=== PATIENT | female | born 1970 | race Caucasian/White ===

== ENCOUNTER 2023-11-27 11:12 | Outpatient (CLI) | payer BC, SELFPAY ==
[2023-11-27 11:43] LABS: Hematocrit 38.9 % (37.0-47.0); Hemoglobin 13.1 g/dL (12.0-15.0); Mean Corpuscular HGB Conc 33.7 g/dl (32-36); Mean Corpuscular Hemoglobin 31.1 pg (26-34); Mean Corpuscular Volume 92.4 fl (80-100); Mean Platelet Volume 9.7 fl (7.4-10.4); Platelet Count Result 235 k/mm3 (150-375); Red Blood Count 4.21 M/mm3 (4.2-5.4); Red Cell Distribution Width 14.2 % (11.5-14.5); White Blood Count 4.2 K/mm3 (4.5-10.0)
[2023-11-27 11:54] LABS: Band Neutrophils Percent 4 % (0-6); Eosinophils Absolute Manual 0.16 K/mm3 (0.02-0.50); Eosinophils Percent Manual 4 % (0-4); Lymphocytes Absolute Manual 2.39 K/mm3 (1.1-4.5); Monocytes Absolute Manual 0.21 K/mm3 (0.1-0.90); Monocytes Percent Manual 5 % (3-9); Neutrophils Absolute Manual 1.42 K/mm3 (1.7-7.2); Neutrophils Percent Manual 30 % (46-73); Platelet Estimate Adequate (Adequate); Schistocytes None Seen; Total Cells Counted 100
[2023-11-27 17:07] LABS: Alanine Aminotransferase 33 U/L (6-35); Albumin Level 4.6 g/dL (3.5-5.1); Alkaline Phosphatase 87 U/L (38-126); Anion Gap 5 mmol/L (4-12); Aspartate Amino Transferase 41 U/L (14-36); Bilirubin,Total 0.8 mg/dL (0.2-1.3); Blood Urea Nitrogen 14 mg/dL (7-17); Calcium 9.1 mg/dL (8.4-10.2); Carbon Dioxide 31 mmol/L (22-30); Chloride 99 mmol/L (98-107); Estimated Glomerular Filt Rate > 60; Glucose 89 mg/dL (65-110); Potassium 4.6 mmol/L (3.4-5.0); Sodium 135 mmol/L (137-145)
[2023-11-27 17:55] LABS: Iron 118 ug/dL (37-170)
[2023-11-27 18:15] LABS: Percent Iron Saturation 43 % (20-50)
[2023-11-27 18:22] LABS: Folic Acid > 20.0 ng/mL (2.76->20); Vitamin B12 > 1000.0 pg/mL (239-931)
[2023-11-29 21:03] LABS: Methylmalonic Acid 64 nmol/L (55-335)
== END 2023-11-27 11:13 | disposition home or self-care (01) ==
PROVIDERS: Nurse Practitioner Family; PCP Physician Assistant Medical; Visit Provider Internal Medicine Hematology & Oncology
DX: D72.819 Decreased white blood cell count, unspecified (principal); D50.9 Iron deficiency anemia, unspecified
CPT/HCPCS: 36415; 80053; 82607; 82728; 82746; 83540; 83550; 83921; 85025; 86038; 86039; 88184

== ENCOUNTER 2024-03-31 07:58 | Outpatient (CLI) | payer BC, SELFPAY ==
[2024-03-31 08:19] LABS: Basophils Percent Auto 0.6 % (0.2-1.2); Eosinophils Absolute Auto 0.2 K/mm3 (0-0.3); Eosinophils Percent Auto 3.3 % (0-4.4); Hematocrit 36.9 % (37.0-47.0); Hemoglobin 12.8 g/dL (12.0-15.0); Immature Granulocyte Absolute 0.02 K/mm3 (0.00-0.031); Immature Granulocyte Percent A 0.4 % (0-0.5); Lymphocytes Absolute Auto 3.05 K/mm3 (0.9-3.2); Lymphocytes Percent Auto 63.4 % (18.3-44.2); Mean Corpuscular HGB Conc 34.7 g/dl (32-36); Mean Corpuscular Hemoglobin 31.1 pg (26-34); Mean Corpuscular Volume 89.8 fl (80-100); Mean Platelet Volume 9.3 fl (7.4-10.4); Monocytes Absolute Auto 0.4 K/mm3 (0.1-0.6); Monocytes Percent Auto 8.5 % (2.6-8.5); Neutrophils Absolute Auto 1.1 K/mm3 (1.3-6.7); Neutrophils Percent Auto 23.8 % (45.5-73.1); Platelet Count Result 217 k/mm3 (150-375); Red Blood Count 4.11 M/mm3 (4.2-5.4); Red Cell Distribution Width 13.6 % (11.5-14.5); White Blood Count 4.8 K/mm3 (4.5-10.0)
[2024-03-31 08:26] LABS: Atypical Lymphocytes Present; Platelet Estimate Adequate (Adequate); Schistocytes None Seen
[2024-03-31 13:38] LABS: Anion Gap 3 mmol/L (4-12); Blood Urea Nitrogen 17 mg/dL (7-17); Carbon Dioxide 30 mmol/L (22-30); Chloride 103 mmol/L (98-107); Estimated Glomerular Filt Rate > 60; Glucose 93 mg/dL (65-110); Potassium 4.5 mmol/L (3.4-5.0); Sodium 136 mmol/L (137-145)
[2024-03-31 14:46] LABS: Folic Acid 16.1 ng/mL (2.76->20)
== END 2024-03-31 07:59 | disposition home or self-care (01) ==
LOC: ANHLAB 08:00
PROVIDERS: PCP Physician Assistant Medical; Visit Provider Internal Medicine Hematology & Oncology
DX: D72.819 Decreased white blood cell count, unspecified (principal)
CPT/HCPCS: 36415; 80048; 82607; 82746; 85025

== ENCOUNTER 2024-09-24 08:03 | Outpatient (CLI) | payer BC, SELFPAY ==
--- OUTSIDE RECORDS SUMMARY | 2024-09-24 08:08 | XMS_ITS | Data Portability ---
Author Organization [facility], [id number] Address [address] [place] [address] Assessment No assessment recorded. Plan of Treatment Reminders Order Date Submit Date Provider Last Modified By Organization Details Last Modified Time Details Appointments ANNUAL- EST 15 2025 07:30A M KORTNEY ZAYAS WHNP Not available Not available Not available Lab None recorde d. Referral None recorde d. Procedures None recorde d. Surgeries None recorde d. Imaging MAMMO, screeni ng, digital , bilater al 2024 025 [facility] Bus Repair Supervisor Lisa [address] [place] [address], [address], 08/06/2024 14:29:24 Medication Orders None recorde d. Patient TargetsNo targets recorded. Patient InstructionsNo instructions recorded. Reason for Referral None Reported. Results Created Date Observation Date Name Description Value Unit Range Abnormal Flag Note LastModifiedBy Organization Detail LastModifiedTime 09/15/19 25 09/14/2024 MAMMO , scree cooper, digit al, bilat eral No observ ation record ed. [address], [address], 09/15/2024 16:11:31 Result Notes None recorded. Problems Name Problem SNOMED Code Status Onset Date Resolution Date Notes Provider Name and Address Organization Details Recorded Time Disorder of thyroid gland 73048529 Active 2024 hyperthyroid after daughter was born but then saw thyroid specialist and was told there is nothing wrong with her thyroid per pt. -antelmo KORTNEY ZAYAS WHNP [address], [place], [address] [place] [address] for [facility] [place][note 2] 12:35:55 Problem Notes None recorded. Procedures Surgical History Date Name Laterality Status Provider Name and Address Organization Details Recorded Time 09/11/19 24 Date of Last [facility]ammogram completed [facility] [place][note 2] 07/23/2024 12:00:44 03/19/20 22 Date of Last Pap Smear completed [facility] 07/23/2024 09:36:13 05/13/19 21 Date of Last Colonoscopy completed [facility] 07/23/2024 09:36:50 excision of benign lesion of skin of extremities completed [facility] 07/23/2024 09:41:44 section completed [facility] 07/23/2024 09:42:01 Colonoscopy completed [facility] 07/23/2024 09:42:08 Endometrial Ablation completed [facility] 07/23/2024 09:42:18 Tubal Ligation completed [facility] 07/23/2024 09:42:30 laparoscopic sterilization completed Not Available [facility] 09/10/2024 12:35:59 endometrial ablation completed Not Available [facility] 09/10/2024 12:35:59 colonoscopy completed Not Available [facility] 09/10/2024 12:35:59 Imaging Results Imaging Date Name Status LastModified by Organiz ation Details LastModified Time 09/14/2024 MAMMO, screening, digital, bilateral active [address], [address], 09/15/2024 16:11:31 Procedure Notes None recorded. Medical Equipment None Reported. Allergies No known drug allergies Medications Name Sig Start Date Stop Date Status Note LastModified by Organization Details LastModified Time azithromyci n 250 mg tablet TAKE 2 TABLETS BY MOUTH TODAY, THEN TAKE 1 TABLET DAILY FOR 4 DAYS DIRECTED 07/23 completed Not Available Not Available Not Available benzonatate 100 mg capsule TAKE 1 CAPSULE BY MOUTH THREE TIMES DAILY NEEDED 07/23 completed Not Available Not Available Not Available pantoprazol e 40 mg tablet,hazel yed release TAKE 1 TABLET BY MOUTH IN THE MORNING 07/23 completed Not Available Not Available Not Available oseltamivir 75 mg capsule TAKE 1 CAPSULE BY MOUTH TWICE DAILY FOR 5 DAYS 07/23 completed Not Available Not Available Not Available methylpredn isolone 4 mg tablets in a dose pack TAKE 6 TABLETS ON DAY 1 DIRECTED ON PACKAGE AND DECREASE BY 1 TAB EACH DAY FOR A TOTAL OF 6 DAYS 07/23 completed Not Available Not Available Not Available esomeprazol e magnesium 20 mg capsule,del ayed release TAKE 1 CAPSULE (20 MG TOTAL) BY MOUTH EVERY MORNING BEFORE BREAKFAST FOR 60 DAYS. active Not Available Not Available No t Available Vitamin C active Not Available Not Emy ilable Not Available iron active Not Available Not Availa ble Not Available Probiotic active Not Available Not Emy ilable Not Available Vitals Date Recorded Body height Body mass index (BMI) Body weight Systolic blood pressure Diastolic blood pressure Provider Name and Address Organization Details Last Updated DateTime 07/23/2024 168.91 cm 28.6 kg/m2 70304.63 g 120 mm[Hg] 68 mm[Hg] [facility] [place][note 2] 11:57:08 Social History Question Answer Notes LastModified by Organizat ion Details LastModified Time Tobacco Smoking Status Former Smoker [facility] [place][note 2] 07/23/2024 11:57:23 Do You Have An Advance Directive? Yes Information not available 07/23/2024 If You Are , What Was Your Level Of Alcohol Consumption Prior To ? Occasional Information not available 07/23/2024 How Many Years Have You Consumed Alcohol? 30 Information not available 07/23/2024 What Is Your Level Of Caffeine Consumption? Occasional Information not available 07/23/2024 What Type Of Diet Are You Following? REGULAR Information not available 07/23/2024 What Is Your Relationship Status? Information not available 07/23/2024 At What Age Did You Start Smoking Tobacco? 14 Information not available 07/23/2024 How Much Tobacco Do You Smoke? No Information not available 07/23/2024 Sex: Unknown Functional Status Question Answer Note LastModified by Organizat ion Details LastModified Time Do you use any illicit or recreational drugs? No [email or web address] Information not available 09/10/2024 What is your level of alcohol consumption? Occasional Information not available 07/23/2024 Are you currently employed? 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 Family History Relationship Description Onset Age of this Age Resolved Age Notes LastModified by Organization Details LastModified Time Maternal Grandmother Malignant tumor of breast [email or web address] Not available 2024 11:57:11 Maternal Grandmother Heart disease [email or web address] Not available 2024 09:39:06 Maternal Grandmother Family history of stroke [email or web address] Not available 2024 11:57:12 Mother Hyperthyroid ism [email or web address] Not available 2024 11:57:12 Paternal Grandfather Heart disease [email or web address] Not available 2024 11:57:12 Father Heart disease [email or web address] Not available 2024 11:57:12 Maternal Grandmother Cerebrovascu lar accident Stroke [email or web address] Not available 05/2024 13:27:07 Maternal Grandmother Malignant neoplastic disease Cancer MGM: Breast CA [email or web address] Not available 09/10/2024 13:27:07 Medical History Condition Response Endocrinology-Other Y GI- Irritable Bowel Syndrome Y Cancer- Genetic screening Hematology-Other Y Endocrinology- Thyroid Problems Y Urology-Other Y Gynecological History Statement/Question Response Date of Last Mammogram 09/11/2023 History of Fibroids Y Date of LMP History of Recurrent Ovarian Cysts N Age at first intercourse 14 If Post Menopausal, Age at Menopause 1 Post Menopausal Hormone Therapy User Nev er Date of Last Colonoscopy 05/13/2020 Date of Last Cholesterol Screening 05/13 History of PCOS N History of Infertility N History of Cervical Dysplasia N History of Vulvar Dysplasia N History of HPV N Current Control Method Age at Menarche 11 History of Endometriosis N Frequency of Cycle (Q days) 0 Sexually Active? Y History of Abnormal PAP N History of Dysmenorrhea N Menses Monthly N Date of Last Pap Smear 03/19/2022 Sexual Problems? N History of Sexually Transmitted Infectio n N Obstetrics History GPAL:G 4 P 0 0 1 3 Type Value Multiple Births 0 Full Term 0 Induced 0 Spontaneous 1 Premature 0 Living 3 Ectopics 0 Total 4 Past Encounters Encounter ID Performer Location Encounter Start Date Encounter Closed Date Diagnosis/Indication Diagnosis SNOMED-CT Code Diagnosis ICD10 Code Diagnosis Note [id number] [address], [place] [id number] [place] [address] 07/23/2024 11:47:33 07/23/2024 12:38:37 Screening mammography 61164597 Z12.31 -call to schedule mammogram Gynecologi c examination 28508341 Z01.419 -f/u 1 year for annual BEHAVIORAL HEALTH COUNSELOR exam Health Concerns Section Related Observation LastModified by Organization Detai ls LastModified Time None Recorded Concern Status LastModified by Organization Details LastModified Time None Recorded Advance Directives Directive Y: Payers Insurance Date Sequence Insurance Name Policy Number Policy Conti Covered Member ID Conti Member ID Guarantor Name 07/23/2024 1 [place] [id number] Danyell Ayala [id number] Danyell Ayala Notes Date Note Type Note Provider Name and Address Organization Details Recorded Time 07/23/2024 text/html [facility] Annual Well-Women Visit Age 40-64Reported bypatient.Current Medical History:reviewed and documented Last Pap smear:up-to-date Mammography:due Colorectal screening:up-to-silvinao e Contraceptive Method:satisfied with current method; contraceptive method: patient sterilization Sexually Active:Yes: same partner STI Screen:declines STI testing KORTNEY ZAYAS [facility] [address], [place], [address], [facility] 07/23/2024 12:38:20 OBGyn Episode No OBEpisode recorded.
--- OUTSIDE RECORDS SUMMARY | 2024-09-24 08:08 | XMS_ITS | Clinical Summary ---
Author Organization [facility] Address [address] [place] [address] Care Team Providers Care Station Engineer Main Line Name Role Phone None, Provider Primary Care Provider Angelique Olivier Unavailable [phone] Allergies No known active allergies Medications Multiple Vitamins-Minera ls (MULTIVITAMIN ADULT OR) Active Vitamin D 12.5 MCG/0.25ML Liquid Active vitamin C 250 MG tablet Take 2 tablets (500 mg total) by mouth daily. Active vitamin B-12 (CYANOCOBALAMIN ) 500 MCG tablet Take 1 tablet (500 mcg total) by mouth daily. Active Magnesium 200 MG Tab Active ferrous sulfate, 65 mg elemental, 325 (65 FE) MG tablet Take 1 tablet (325 mg total) by mouth daily with breakfast. Active Probiotic Product (PROBIOTIC ADVANCED OR) Active vitamin C (ASCORBIC ACID) 250 MG tablet Take 1 tablet (250 mg total) by mouth daily. Active Ferrous Gluconate (IRON 27 OR) Active probiotic (FLORAJEN3) Cap capsule Take 1 capsule by mouth daily with breakfast. Active benzonatate (TESSALON PERLES) 100 MG capsuleIndicati ons:Influenza A Take 1 capsule (100 mg total) by mouth 3 (three) times daily as needed. 40 capsule 06/15/2024 Active Active Problems Problem Noted Date Diagnosed Date Screening for colon cancer 02/02/2020 Overview (02/02/2020): Added automatically from request for surgery [id number] Encounters Date Type Department Care Team Description 09/14/2024 7:23 AM CDT - 09/14/2024 11:59 PM CDT Hospital Encounter [facility] [address] [place] [address] Kortney Zayas NP Discharge Disposition: Home or Self Care (Routine Discharge) 09/14/2024 Travel 08/21/2024 Patient Self-Triage [facility] Provider from Last 3 Months Immunizations Immunization Administration Dates Next Due Influenza (Generic) 02/11/2024,01/30/2017,2015 Influenza Adult (Generic) 01/30/2017,02/22/2016 Family History Medical History Relation Comments COPD Father No Known Problems Maternal Aunt Breast Cancer Maternal Grandmother No Known Problems Maternal Uncle No Known Problems Paternal Aunt No Known Problems Paternal Grandfather No Known Problems Paternal Grandmother No Known Problems Paternal Uncle Relation Status Comments Father Alive Maternal Aunt Maternal Grandmother Maternal Uncle Mother Alive Paternal Aunt Paternal Grandfather Paternal Grandmother Paternal Uncle Social History Tobacco Use Types Packs/Day Years Used Date Smoking Tobacco: Former Cigarettes 1 15 1 0 - 2004 Smokeless Tobacco: Never Tobacco Cessation:Counseling Given: No Alcohol Use Standard Drinks/Week Comments Not Currently 0 (1 standard drink = 0.6 oz pur e alcohol) PHQ-2 Answer Date Recorded Patient Health Questionnaire-2 Score 0 06/15/2024 Comments No Sex and Gender Information Value Date Recorded Sex Assigned at Not on file Legal Sex Female 7:57 PM CDT Gender Identity Female 05/30/2021 10:57 AM SLOT TECHNICIAN Sexual Orientation Straight 05/30/2021 10 :57 AM SLOT TECHNICIAN Last Filed Vital Signs Vital Sign Reading Time Taken Comments Blood Pressure 109/62 06/15/2024 2:12 PM SLOT TECHNICIAN Pulse 85 06/15/2024 2:12 PM SLOT TECHNICIAN Temperature 36.8 C (98.3 F) 06/15/2024 2:12 PM SLOT TECHNICIAN Respiratory Rate 18 06/15/2024 2:12 PM SLOT TECHNICIAN Oxygen Saturation 97% 06/15/2024 2:12 PM SLOT TECHNICIAN Inhaled Oxygen Concentration - - Weight 81.3 kg (179 lb 3.2 oz) 06/15/2024 2:12 P M SLOT TECHNICIAN Height 168.9 cm (5' 6.5 ) 06/15/2024 2:12 PM SLOT TECHNICIAN Body Mass Index 28.49 06/15/2024 2:12 PM SLOT TECHNICIAN Plan of Treatment Health Maintenance Due Date Last Done Comments Annual Physical 1972 Hepatitis C 10/13/1987 DTaP, Tdap and Td Vaccines (1 - Tdap) 1988 Hepatitis B Vaccines (1 of 3 - 19+ 3-dose series) 1988 Pneumococcal Vaccine: 50+ Years (1 of 1 - PCV) 10/13/2019 Zoster Vaccines (1 of 2) 10/13/2019 Cervical Cancer Screening Pap Smear (Age 30 to 64) Every 3 Years 02/09/2022 02/09/2019 COVID-19 Vaccine ( season) 2024 04/13/2021, 07/18/2020 Cervical Cancer Screening Pap with HPV Testing (Age 30 to 64) Every 5 Years 02/10/2024 02/09/2019 Cervical Cancer Screening with HPV 02/10/2024 Mammogram Screening 09/14/2026 09/14/2024, 09/11/2023, 07/12/2022, Additional history exists Colorectal Cancer Screening Colonoscopy (10 Years) 07/07/2031 07/07/2021 PHQ-2 (Physician [place]) Completed 06/15/2024 Meningococcal B Vaccine Aged Out No l onger eligible based on patient's age to complete this topic Meningococcal Vaccine Aged Out No tejas kvng eligible based on patient's age to complete this topic RSV Immunizations Under 20 Months Aged Out No longer eligible based on patient's age to complete this topic Procedures Procedure Name Priority Date/Time Associated Diagnosis Comments MG SCREENING W LINDA EDEN DIGI Routine 09/14/2024 7:42 AM CDT Encounter for screening mammogram for malignant neoplasm of breast VITAMIN D, 25 OH Routine 09/08/2024 12:1 0 AM CDT [facility]ALTH FAIR WITH LIPID Routine 09/08/2024 12:10 AM CDT HEMOGLOBIN, GLYCOSYLATED Routine 09/08/2024 12:10 AM CDT HPV MRNA E6/E7 Routine 02/09/2019 9:28 AM CDT CYTOPATH CERV/VAG THIN LAYER Routine 02/09/2019 12:00 AM CDT from Last 3 Months or Most Recently Relevant to Health Maintenance Results * MG SCREENING W LINDA EDEN DIGI (09/14/2024 7:42 AM CDT) Anatomical Region Laterality Modality Breast Bilateral Mammography 09/14/2024 7:29 PM CDT Impressions 09/14/2024 7:31 PM CDT IMPRESSION: No interval features to suggest malignancy. In the absence of clinical symptoms, return for annual screening due in one year. Recommendation: Routine Screening Bilateral. Assessment: ACR BI-RADS 2 - BENIGN FINDING(S) Ordered By: KORTNEY ZAYAS Interpreted By: Sammy Fernandez DO, 09/14/2024 7:29 PM Narrative 09/14/2024 7:31 [place] [address] Examination: BILATERAL SCREENING MAMMOGRAM Exam Date: 09/14/2024 7:28 AM Clinical Indication: 53 years of age female routine screening. No personal history of breast cancer. There is a secondary family history of breast cancer. Comparison: Mammograms dating back to 03/11/2020. Technique: Digital CC and MLO views. Tomosynthesis imaging acquisition. Study read with the assistance of a computer-aided detection system. Tissue density:There are scattered areas of fibroglandular density. Findings: Stable fibroglandular pattern bilaterally. Benign calcifications and axillary lymph nodes. No suspicious masses, malignant appearing calcifications, skin thickening or other abnormalities are present. No findings of concern with computer-assisted software. us Kortney Zayas NP MAMMO Final Result * (ABNORMAL) [facility] FAIR WITH LIPID (09/08/2024 12:10 AM CDT) WBC 3.46(L) 4.4 - 11.0 x10'3/uL 09/08/2024 7:20 AM CDT [facility] RBC 3.43(L) 4.50 - 5.10 x10'6/uL 09/08/2024 7:20 AM CDT [facility] HGB 12.0(L) 12.3 - 15.3 G/DL 09/08/2024 7:20 AM T [facility] HCT 32.7(L) 35.9 - 44.6 % 09/08/2024 7:20 AM T [facility] MCV 95.3 80.0 - 96.0 FL 09/08/2024 7:20 AM T [facility] MCH 35.0(H) 25.3 - 30.9 PG 09/08/2024 7:20 AM T [facility] MCHC 36.7(H) 31.0 - 34.1 G/DL 09/08/2024 7:20 AM T [facility] RDW 15.0 12.4 - 15.1 % 09/08/2024 7:20 AM T [facility] PLT 206 151 - 353 x10'3/uL 09/08/2024 7:20 AM T [facility] MPV 9.8 9.6 - 12.0 FL 09/08/2024 7:20 AM T [facility] RBC MORPHOLOGY NORMAL 09/08/2024 7:20 AM T [facility] PLT MORPH. NORMAL 09/08/2024 7:20 AM T [facility] WBC MORPHOLOGY NORMAL 09/08/2024 7:20 AM T [facility] LYMPHOCYTES % 65.6(H) 15.8 - 45.0 % 09/08/2024 7:20 AM [facility] NEUTROPHILS % 21.6(L) 42.1 - 71.9 % 09/08/2024 7:20 AM [facility] MONOCYTES % 8.7 5.7 - 12.5 % 09/08/2024 7:20 AM [facility] EOSINOPHILS 3.5 0.0 - 5.6 % 09/08/2024 7:20 AM [facility] BASOPHILS 0.6 0.0 - 1.3 % 09/08/2024 7:20 AM [facility] ABS. NEUTROPHILS 0.75(L) 1.40 - 6.00 x10'3/uL 09/08/2024 7:20 AM [facility] IMMATURE GRANS % 0.0 0.0 - 0.5 % 09/08/2024 7:20 AM [facility] ABS. LYMPHOCYTES 2.27 0.80 - 4.70 x10'3/uL 09/08/2024 7:20 AM [facility] GLUCOSE 96 70 - 99 MG/DL 09/08/2024 8:01 AM [facility] BUN 12 7 - 18 MG/DL 09/08/2024 8:01 AM [facility] CREATININE S/P/B 0.79 0.55 - 1.02 MG/DL 09/08/2024 8:01 AM [facility] SODIUM S/P/B 141 136 - 145 MMOL/L 09/08/2024 8:01 AM [facility] POTASSIUM S/P/B 4.3 3.5 - 5.1 MMOL/L 09/08/2024 8:01 AM [facility] CHLORIDE S/P/B 104 100 - 108 MMOL/L 09/08/2024 8:01 AM [facility] CO2 29.1 21 - 32 MMOL/L 09/08/2024 8:01 AM [facility] CALCIUM S/P/B 8.7 8.5 - 10.1 MG/DL 09/08/2024 8:01 AM [facility] BILIRUBIN TOTAL S/P/B 0.7 0.2 - 1.2 MG/DL 09/08/2024 8:01 AM [facility] TOTAL PROTEIN S/P/B 6.5 6.4 - 8.2 G/DL 09/08/2024 8:01 AM [facility] ALBUMIN S/P/B 3.6 3.4 - 5.0 G/DL 09/08/2024 8:01 AM [facility] AST 20 15 - 37 U/L 09/08/2024 8:01 AM [facility] ALT 24 14 - 55 U/L 09/08/2024 8:01 AM [facility] ALKALINE PHOSPHATASE S/P/B 82 50 - 136 U/L 09/08/2024 8:01 AM [facility] ANION GAP 7.9 5 - 15 MMOL/L 09/08/2024 8:01 AM [facility] BUN CREATININE RATIO 15.2 6 - 26 09/08/2024 8:01 AM [facility] A/G RATIO 1.2 1.0 - 2.0 RATIO 09/08/2024 8:01 AM [facility] GFR ESTIMATE 89(L) >90 ML/MIN/1. 73 M2 09/08/2024 8:01 AM [facility] Comment: NOTE: eGFR is not calculated for patients <18 years of age. This is an estimated GFR calculation using the new CKD EPI creatinine equation without race and so does not require a correction factor for race. This estimated GFR should not be used for calculating drug doses. TSH 2.253 0.358 - 3.74 uIU/ML 09/08/2024 8:01 AM [facility] Comment: HIGH DOSES OF BIOTIN MAY INTERFERE WITH THIS TEST RESULT. CORRELATION TO CLINICAL HISTORY AND PRESENTATION RECOMMENDED. CHOLESTEROL 152 <200.0 MG/DL 09/08/2024 8:01 AM T [facility] TRIGLYCERIDES 88 <150 MG/DL 09/08/2024 8:01 AM [facility] HDL 51 >40.0 MG/DL 09/08/2024 8:01 AM [facility] LDL (CALCULATED) 83 <100 MG/DL 09/08/2024 8:01 AM [facility] NON HDL CHOLESTEROL 101 <130 MG/DL 09/08/2024 8:01 AM [facility] CHOL/HDL RATIO 3.0 0.0 - 4.5 09/08/2024 8:01 AM [facility] VLDL CALCULATION 18 5 - 55 MG/DL 09/08/2024 8:01 AM [facility] LIPID INTERPRETATION 09/08/2024 8:01 AM [facility] Comment: NIH CONCENSUS REPORT RECOMMENDATIONS: ADULT CHILD LOW RISK: CHOLESTEROL <200 <170 TRIGLYCERIDE <150 --- HDL >=60 --- LDL <100 <110 BORDERLINE: CHOLESTEROL 200-239 170-199 TRIGLYCERIDE 150-199 --- HDL 40-59 --- LDL 100-159 110-129 HIGH RISK: CHOLESTEROL >=240 >=200 TRIGLYCERIDE >=200 --- HDL <40 --- LDL >=160 >=130 09/08/2024 12:1 0 AM CDT José Miguel Boswell MD LABORATORY Final Result [facility] [address] [place] [address], [place] [phone] * HEMOGLOBIN, GLYCOSYLATED (09/08/2024 12:10 AM CDT) [facility] HGB A1C 5.0 <5.7 % 09/08/2024 8:12 AM CDT [facility] Comment: INCREASED RISK OF DIABETES <5.7% NON-DIABETES 5.7-6.4% INCREASED RISK FOR FUTURE DIABETES > OR = 6.5 CONSISTENT WITH DIABETES STANDARDS OF MEDICAL CARE IN DIABETES-2010 DIABETES CARE, 33(SUPP 1): S1-S61,2009 ESTIMATED AVG GLUCOSE 97 mg/dL 09/08/2024 8:12 AM CDT [facility] 09/08/2024 12:1 0 AM CDT José Miguel Boswell MD LABORATORY Final Result [facility] [address] [place] [address], [place] [phone] * VITAMIN D, 25 OH (09/08/2024 12:10 AM CDT) [facility] VITAMIN D 25 HYDROXY S/P/B 47 30 - 100 NG/ML 09/08/2024 8:47 AM CDT [facility] Comment: INTERPRETATION DEFICIENT <20 INSUFFICIENT 20-29 SUFFICIENT 30-100 09/08/2024 12:1 0 AM CDT us José Miguel Boswell MD LABORATORY Final Result [facility] [address] [place] [address], [place] [phone] * HPV MRNA E6/E7 (02/09/2019 9:28 AM CDT) HPV MRNA E6/E7 Not Detected NOT DETECTED 02/12/2019 10:04 AM CDT [facility] PADMINI RODRIGUEZ Comment: This test was performed using the APTIMA(R) HPV Assay ([employer] This assay detects E6/E7 viral messenger RNA (mRNA) from 14 high-risk HPV types (16,18,31,33,35,39,45,51, 52,56,58,59,66,68). For additional information please refer to: http://education.Urgent Career/faq/ACQ909l3 (This link is being provided for informational/ educational purposes only.) The analytical performance characteristics of this assay have been determined by [employer] [place], [place]. The modifications have not been cleared or approved by the FDA. This assay has been validated pursuant to the CLIA regulations and is used for clinical purposes. Test Performed by [employer], [employer] [facility], [address] [place], [place] Ivan Juan M.D., Ph.D., Director of Laboratories , CLIA [id number] 02/09/2019 9:28 AM CDT Mary SMITH PATHOLOGY/CYTOLOGY ORDERABLE S Final Result [facility] [address] [place] [phone], * Cytopath Cerv/Vag Thin Layer (02/09/2019 12:00 AM CDT) COPATH REPORT [place] [phone] Department of Pathology Pathology Report Gynecological Cytology Report Patient Name: JAZMINE AYALA : 1970 (Age: 48) Location: [facility] Gender: F Collected Date: 02/09/2019 Med Rec #: [id number] Date Received: 02/10/2019 Date Reported: 02/12/2019 Provider: MARY BUNCH Other Case Numbers [id number] Final Cytologic Diagnosis Satisfactory for evaluation. Endocervical component present. Negative for Intraepithelial Lesion or Malignancy. High-risk HPV mRNA E6/E7 by [employer]ptima assay (performed at [facility]) is reported as NOT DETECTED (see separate report for details). Electronically Signed Out By Vinod Alexander Source of Specimen(s) Cervical/Endocervi janet - Thin Prep Clinical History Screening, last Pap 01/25/2016 wnl, hpv negative. Z12.4 Date of Last Menstrual Period: 2015 Billing Fee Code(s): A: 10748 [facility] 02/09/2019 02/10/2019 12: 50 PM CDT Comment:CERVICAL/ENDOCERVICA L - THIN PREP us Mary SMITH PATHOLOGY/CYTOLOGY ORDERABLE S Final Result [facility] [address] [place] [address], from Last 3 Months or Most Recently Relevant to Health Maintenance Insurance [facility] [employer] [facility] [employer] [place] [employer] [facility] Care Teams Station Engineer Main Line Relationship Specialty Start Date End Date None, Provider, PCP - General UNKNOWN PHYSICIAN SPECIALTY 06/15/24 Angelique oHoker PA [address] [place] [phone] PHYSICIAN PROFESSOR OF PHILOSOPHY 06/15/24
--- OUTSIDE RECORDS SUMMARY | 2024-09-24 08:08 | XMS_ITS | Clinical Summary ---
Author Organization [facility] henny [facility] Address [address] [place] [address] Care Team Providers Care Aquatics Instructor Name Role Phone García Gould MD Primary Care Provider [phone] Allergies No known active allergies Medications ascorbic acid, vitamin C, (VITAMIN C) 250 mg tablet Take 500 mg by mouth daily. Active ferrous sulfate 325 mg (65 mg iron) tablet Take 325 mg by mouth daily with breakfast. Active multivitamin (DAILY-DENISA) tablet Take 1 Tablet by mouth daily. Active Active Problems No known active problems Encounters Date Type Department Care Team Description 09/15/2024 External Device Data [facility] ABSTRACTION Provider, Abstract 07/29/2024 External Device Data [facility] [place] Provider, Abstract 07/21/2024 External Device Data [facility] [place] Provider, Abstract 07/21/2024 External Device Data [facility] [place] Provider, Abstract 07/18/2024 External Device Data [facility] [place] Provider, Abstract 07/17/2024 External Device Data [facility] [place]STRACTION Provider, Abstract 07/14/2024 External Device Data [facility]CTION Provider, Abstract 06/30/2024 External Device Data [facility] Provider, Abstract from Last 3 Months Immunizations Immunization Administration Dates Next Due INFLUENZA VACCINE TRIVALENT SPLIT VIRUS, (6 MOS UP), 0.5ML (PF), IM 02/11/2024 Family History Medical History Relation Name Comments No Known Problems Child 1 No Known Problems Child 2 No Known Problems Child 3 Cancer Father Brain tumor, un known primary Heart Disease Father No Known Problems Mother No Known Problems Sister Relation Name Status Comments Child 1 Alive Child 2 Alive Child 3 Alive Father Mother Alive Sister Alive Social History Tobacco Use Types Packs/Day Years Used Date Smoking Tobacco: Former Cigarettes 1 15 0 06/13/1990 - 06/13/2005 Smokeless Tobacco: Never Tobacco Cessation:Counseling Given: Not Answered Alcohol Use Standard Drinks/Week Comments Yes 0 (1 standard drink = 0.6 oz pur e alcohol) Socially Comments Unknown Sex and Gender Information Value Date Recorded Sex Assigned at Not on file Legal Sex Female 4:06 PM CDT Gender Identity Not on file Sexual Orientation Not on file Last Filed Vital Signs Vital Sign Reading Time Taken Comments Blood Pressure 137/81 04/03/2024 10:53 AM SENIOR ENGINEERING SPECIALIST Pulse 70 04/03/2024 10:53 AM SENIOR ENGINEERING SPECIALIST Temperature 36.3 C (97.3 F) 04/03/2024 10:53 AM SENIOR ENGINEERING SPECIALIST Respiratory Rate 14 04/03/2024 10:53 AM SENIOR ENGINEERING SPECIALIST Oxygen Saturation 97% 04/03/2024 10:53 AM SENIOR ENGINEERING SPECIALIST Inhaled Oxygen Concentration - - Weight 80.3 kg (177 lb) 04/03/2024 10:53 AM SENIOR ENGINEERING SPECIALIST Height 168.9 cm (5' 6.5 ) 11/27/2023 10:30 AM CD T Body Mass Index 28.14 11/27/2023 10:30 AM CDT Plan of Treatment Upcoming Encounters Date Type Department Care Team (Late st Contact Info) Description 09/25/2024 11:30 AM CDT Office Visit [facility] Oncology and Hematology - [place] [address] [place] [address] [facility] [address] [place] [address] Deondre Andres MD [address] [facility] [address] [place] [address] Health Maintenance Due Date Last Done Comments Pre-Diabetes and Diabetes Screening 1970 DTAP/TDAP/TD VACCINES (1 - Tdap) 1988 HEPATITIS B VACCINES (1 of 3 - 19+ 3-dose series) 1988 HPV/Cotest (21-29) 1990 HPV/Cotest (30-65) 10/13/1999 COLORECTAL SCREENING 2014 Colorectal Cancer Screening 2014 FIT-DNA Q 3 years 2014 FIT/FOBT Q 1 year 2014 Flex Sig/CT Colonography Q 5 years 2014 ZOSTER VACCINE (1 of 2) 10/13/2019 CERVICAL CANCER SCREENING 02/09/2022 PAP SMEAR 02/09/2022 02/09/2019 Preventative Visit- Commercial 05/13/2024 BREAST CANCER SCREENING 09/10/2024 09/11/19, 09/11/2023, 07/12/2022, Additional history exists INFLUENZA VACCINE Completed 02/11/2024 Insurance BCBS BLUE ACCESS/TRUE BLUE PPO BCBS BLUE ACCESS/TRUE BLUE PPO Care Teams Aquatics Instructor Relationship Specialty Start Date End Date García Gould MD [address] [place] [phone] PCP - General Family Practice 10/16/23
--- OUTSIDE RECORDS SUMMARY | 2024-09-24 08:08 | XMS_ITS | Encounter Summary ---
Author Organization [facility] Address [facility] [place] [address] Care Team Providers Care Outside Plant Cable Engineer Name Role Phone None, Provider Primary Care Provider Angelique Olivier Primary Care Provider [phone] None, Provider Primary Care Provider Angelique Olivier Unavailable Encounter Details Date Type Department Care Team (Late st Contact Info) Description 03/18/2020 Prep for Procedure [facility] [address] [place] [address] Alfredo Virk MD [address] [place] [address] [id number] Social History Tobacco Use Types Packs/Day Years Used Date Smoking Tobacco: Former Cigarettes 1 15 1 990 - 2005 Smokeless Tobacco: Never Alcohol Use Standard Drinks/Week Comments Not Currently 0 (1 standard drink = 0.6 oz pur e alcohol) Comments No Sex and Gender Information Value Date Recorded Sex Assigned at Not on file Legal Sex Female 7:57 PM CDT Gender Identity Female 05/30/2021 10:57 AM CARTON FILLER Sexual Orientation Straight 05/30/2021 10 :57 AM CARTON FILLER COVID-19 Exposure Response Date Recorded In the last month, have you been in contact with someone who was confirmed or suspected to have Coronavirus / COVID-19? No / Unsure 03/11/2020 12:23 PM CDT documented as of this encounter Plan of Treatment Not on file documented as of this encounter Visit Diagnoses Diagnosis Preop testing- Primary Preoperative examination, unspecified documented in this encounter Additional Health Concerns Infection Onset Date Last Indicated Resolved Time COVID-19 Rule Out 06/15/2024 06/15/2024 06/15/2024 2:40 PM CARTON FILLER Influenza - Seasonal 06/15/2024 06/15/2024 025 12:32 AM CARTON FILLER documented as of this encounter Care Teams Outside Plant Cable Engineer Relationship Specialty Start Date End Date None, ProviderMD PCP - General 02/13/19 01/20/22 Angelique Hooker PA [address] [place] [phone] PCP - General PHYSICIAN QUALITY ASSURANCE INSPECTOR 01/21/22 06/14/24 None, ProviderMD PCP - General UNKNOWN PHYSICIAN SPECIALTY 06/15/24 Angelique Hooker PA [address] [place] [phone] PHYSICIAN QUALITY ASSURANCE INSPECTOR 06/15/24 documented as of this encounter
--- OUTSIDE RECORDS SUMMARY | 2024-09-24 08:08 | XMS_ITS | Encounter Summary ---
Author Organization [facility] Address On license of [facility] [place] [address] Care Team Providers Care Tuber Operator Name Role Phone None, Provider Primary Care Provider Angelique Olivier Primary Care Provider None, Provider Primary Care Provider UnavailAngelique Nguyen Unavailable [phone] Encounter Details Date Type Department Care Team (Late st Contact Info) Description 03/01/2014 Abstract [facility] CON[facility] [address] [place] [address] , Generic Conversion, Social History Tobacco Use Types Packs/Day Years Used Date Smoking Tobacco: Never Assessed Comments Unknown Sex and Gender Information Value Date Recorded Sex Assigned at Not on file Legal Sex Female 7:57 PM CDT Gender Identity Female 05/30/2021 10:57 AM FUNDS DEVELOPMENT DIRECTOR Sexual Orientation Straight 05/30/2021 10 :57 AM FUNDS DEVELOPMENT DIRECTOR documented as of this encounter Plan of Treatment Not on file documented as of this encounter Visit Diagnoses Not on filedocumented in this encounter Additional Health Concerns Infection Onset Date Last Indicated Resolved Time COVID-19 Rule Out 06/15/2024 06/15/2024 06/15/2024 2:40 PM FUNDS DEVELOPMENT DIRECTOR Influenza - Seasonal 06/15/2024 06/15/2024 025 12:32 AM FUNDS DEVELOPMENT DIRECTOR documented as of this encounter Care Teams Tuber Operator Relationship Specialty Start Date End Date None, Provider, PCP - General 02/13/19 01/20/22 Angelique Hooker PA [address] [place] [id number] PCP - General PHYSICIAN FINAL ASSEMBLER BOAT 01/21/22 06/14/24 None, Provider, PCP - General UNKNOWN PHYSICIAN SPECIALTY 06/15/24 Angelique Hooker PA [address] [place] [address] PHYSICIAN FINAL ASSEMBLER BOAT 06/15/24 documented as of this encounter
--- OUTSIDE RECORDS SUMMARY | 2024-09-24 08:08 | XMS_ITS | Encounter Summary ---
Author Organization [facility] Address On license of [facility] [place] [address] Care Team Providers Care Garment Liner Name Role Phone None, Provider Primary Care Provider Angelique Olivier Primary Care Provider None, Provider Primary Care Provider UnavailAngelique Nguyen Unavailable [phone] Encounter Details Date Type Department Care Team (Late st Contact Info) Description 01/25/2016 Abstract [facility] CONVERSION [address] [place] [address] , Generic Conversion, Social History Tobacco Use Types Packs/Day Years Used Date Smoking Tobacco: Never Assessed Comments Unknown Sex and Gender Information Value Date Recorded Sex Assigned at Not on file Legal Sex Female 7:57 PM CDT Gender Identity Female 05/30/2021 10:57 AM APPLICATION MANAGER Sexual Orientation Straight 05/30/2021 10 :57 AM APPLICATION MANAGER documented as of this encounter Plan of Treatment Not on file documented as of this encounter Visit Diagnoses Not on filedocumented in this encounter Additional Health Concerns Infection Onset Date Last Indicated Resolved Time COVID-19 Rule Out 06/15/2024 06/15/2024 06/15/2024 2:40 PM APPLICATION MANAGER Influenza - Seasonal 06/15/2024 06/15/2024 025 12:32 AM APPLICATION MANAGER documented as of this encounter Care Teams Garment Liner Relationship Specialty Start Date End Date None, Provider, PCP - General 02/13/19 01/20/22 Angelique Hooker PA [address] [place] [id number] PCP - General PHYSICIAN CHEMICAL LABORATORY CHIEF 01/21/22 06/14/24 None, Provider, PCP - General UNKNOWN PHYSICIAN SPECIALTY 06/15/24 Angelique Hooker PA [address] [place] [id number] PHYSICIAN CHEMICAL LABORATORY CHIEF 06/15/24 documented as of this encounter
[2024-09-24 08:24] LABS: Basophils Absolute Auto 0.1 K/mm3 (0.0-0.1); Basophils Percent Auto 1.1 % (0.2-1.2); Eosinophils Absolute Auto 0.1 K/mm3 (0-0.3); Eosinophils Percent Auto 3.2 % (0-4.4); Hematocrit 35.7 % (37.0-47.0); Immature Granulocyte Absolute 0.02 K/mm3 (0.00-0.031); Immature Granulocyte Percent A 0.5 % (0-0.5); Lymphocytes Absolute Auto 2.84 K/mm3 (0.9-3.2); Mean Corpuscular HGB Conc 33.6 g/dl (32-36); Mean Corpuscular Volume 92.2 fl (80-100); Mean Platelet Volume 9.5 fl (7.4-10.4); Monocytes Absolute Auto 0.4 K/mm3 (0.1-0.6); Neutrophils Percent Auto 22.2 % (45.5-73.1); Platelet Count Result 214 k/mm3 (150-375); Red Blood Count 3.87 M/mm3 (4.2-5.4); Red Cell Distribution Width 14.2 % (11.5-14.5); White Blood Count 4.4 K/mm3 (4.5-10.0)
[2024-09-24 10:13] LABS: Alanine Aminotransferase 31 U/L (6-35); Albumin Level 4.3 g/dL (3.5-5.1); Alkaline Phosphatase 82 U/L (38-126); Anion Gap 4 mmol/L (4-12); Aspartate Amino Transferase 41 U/L (14-36); Bilirubin,Total 0.9 mg/dL (0.2-1.3); Blood Urea Nitrogen 13 mg/dL (7-17); Calcium 8.6 mg/dL (8.4-10.2); Carbon Dioxide 28 mmol/L (22-30); Chloride 105 mmol/L (98-107); Estimated Glomerular Filt Rate > 60; Folic Acid 19.3 ng/mL (2.76->20); Glucose 92 mg/dL (65-110); Sodium 137 mmol/L (137-145)
== END 2024-09-24 08:04 | disposition home or self-care (01) ==
LOC: ANHLAB 08:04
PROVIDERS: PCP Physician Assistant Medical; Visit Provider Internal Medicine Hematology & Oncology
DX: D72.819 Decreased white blood cell count, unspecified (principal)
CPT/HCPCS: 36415; 80053; 82607; 82746; 85025